=== PATIENT | female | born 1935 | race Caucasian/White ===

== ENCOUNTER → 2017-09-08 | Outpatient (CLI) | payer MEDICARE ==
--- NOTE | 2017-09-08 13:08 | BD ---
EXAMINATION TYPE: Axial Bone Density DATE OF EXAM: 09/08/2017 COMPARISON: 05/03/2008 CLINICAL HISTORY: Post menopausal female. Osteoporosis screening. Height: 59.5 IN Weight: 124 LBS FRAX RISK QUESTIONS: Rheumatoid Arthritis: YES RISK FACTORS HISTORY OF: Family History of Osteoporosis: YES MOTHER Active: YES Diet low in dairy products/other sources of calcium: YES Postmenopausal woman: AGE 49 Lost more than 2 inches in height since high school: YES 3" MEDICATIONS: Additional Medications: VIT D, WOMENS OVER 50 MULTI VIT, CHOLESTEROL MED, GLUCOSAMINE CHONDROITIN, BA BY ASPIRIN EXAM MEASUREMENTS: Bone mineral densitometry was performed using the [employer] System. Bone mineral density as measured about the Lumbar spine is: ----- L1-L4(G/cm2): 1.261 T Score Values are as follows: ----- L2: 0.0 ----- L3: 0.6 ----- L4: 2.1 ----- L1-L4: 0.7 Bone mineral density has: Increased 0.2% since study of: 05/03/2008 Bone mineral density about the R hip (g/cm2): 0.735 Bone mineral density about the L hip (g/cm2): 0.717 T Score values are as follows: -----R Neck: -2.2 -----L Neck: -2.3 -----R Total: -1.9 -----L Total: -1.8 Bone mineral density has: Decreased -13.4% since study of: 05/03/2008 IMPRESSION: Osteopenia (T Score between -2.5 and -1). There is slightly increased risk of fracture and the patient may be considered for treatment. Re-Screen 2-5 years. NOTE: T-SCORE=SD OF THE YOUNG ADULT MEAN.
== END | disposition home or self-care (01) ==
LOC: RADBDWWP 09:14
PROVIDERS: ATTEND Family Medicine
DX: M85.88 Other specified disorders of bone density and structure, other site (principal); Z78.0 Asymptomatic menopausal state
CPT/HCPCS: 77080

== ENCOUNTER → 2020-01-05 | Outpatient (CLI) | payer MEDICARE ==
--- NOTE | 2020-01-06 11:59 | MM ---
Reason for exam: screening (asymptomatic). Last mammogram was performed 10 years and 3 months ago. History: Patient is postmenopausal. Physical Findings: A clinical breast exam by your physician is recommended on an annual basis and results should be correlated with mammographic findings. MG 3D Screening Mammo W/Cad Bilateral CC and MLO view(s) were taken. Prior study comparison: September 20, 2009, bilateral digital screening mammogram. May 03, 2008, bilateral digital screening mammogram. The breast tissue is heterogeneously dense. This may lower the sensitivity of mammography. Stable benign calcifications. There is no discrete abnormality. No significant changes when compared with prior studies. ASSESSMENT: Benign, BI-RAD 2 RECOMMENDATION: Routine screening mammogram of both breasts in 1 year.
== END | disposition home or self-care (01) ==
LOC: RADMAMWWP 09:51
PROVIDERS: ATTEND Family Medicine
DX: Z12.31 Encounter for screening mammogram for malignant neoplasm of breast (principal)
CPT/HCPCS: 77063; 77067